=== PATIENT | female | born 1980 | race African-American/Black ===

== ENCOUNTER 2019-04-30 15:22 | Emergency (ER) | payer MEDICAID ==
[~2019-04-30] VITALS: Ht 172.7 cm; Wt 118.2 kg
[2019-04-30 15:31] VITALS: Ht 172.7 cm; Wt 118.2 kg
[2019-04-30] MEDS ORDERED: PROMETHAZINE W473 ML PO (17:22)
[2019-04-30 17:33] VITALS: BP 115/65
== END 2019-04-30 17:34 | disposition home or self-care (01) ==
LOC: D.ER 15:22
DX: J02.8 Acute pharyngitis due to other specified organisms (principal)

== ENCOUNTER 2020-05-08 20:43 | Emergency (ER) | payer MEDICAID ==
[~2020-05-08] VITALS: Ht 172.7 cm; Wt 100.0 kg
[~2020-05-08 20:43] MED LIST: PROMETHAZINE W473 ML PO
[2020-05-08 21:18] VITALS: Ht 172.7 cm; Wt 100.0 kg
[2020-05-09] MEDS ORDERED: VOLTAREN75 MG PO (00:04)
[2020-05-09] MEDS ORDERED: ZANAFLEX4 MG PO (00:04)
[2020-05-09] MEDS ORDERED: OMEPRAZOLE20 M1 PO (00:04)
[2020-05-09 00:19] VITALS: BP 159/75
== END 2020-05-09 00:20 | disposition home or self-care (01) ==
LOC: D.ER 20:43
DX: S39.012A Strain of muscle, fascia and tendon of lower back, initial encounter (principal); W01.0XXA Fall on same level from slipping, tripping and stumbling without subsequent striking against object, initial encounter; Y93.9 Activity, unspecified; Y92.9 Unspecified place or not applicable